=== PATIENT | female | born 1990 | race Caucasian/White ===

== ENCOUNTER → 2020-09-11 12:43 | Outpatient (CLI) | payer OTHER, SELFPAY ==
[2020-09-11 13:30] LABS: COVID19 -Nasal RAPID Negative (Negative)
== END ==
PROVIDERS: Visit Provider Student in an Organized Health Care Education/Training Program
DX: Z20.822 Contact with and (suspected) exposure to COVID-19 (principal)
CPT/HCPCS: 87635

== ENCOUNTER → 2020-10-16 08:13 | Outpatient (CLI) | payer OTHER, SELFPAY ==
[2020-10-16 09:19] LABS: Add Manual Diff / Slide Review NO; Basophils Absolute Auto 0 /uL (0-100); Basophils Percent Auto 0.7 % (0-2); Eosinophils Absolute Auto 200 /uL (0-450); Eosinophils Percent Auto 3.6 % (2-4); Hematocrit 40.3 % (36-46); Hemoglobin 13.7 g/dL (12.0-16.0); Lymphocytes Absolute Auto 1600 /uL (1100-4500); Lymphocytes Percent Auto 33.4 % (25-40); Mean Corpuscular Hemoglobin 31.3 PG (26-34); Mean Corpuscular Volume 91.9 fL (80-100); Monocytes Absolute Auto 400 /uL (0-900); Monocytes Percent Auto 7.5 % (3-14); Neutrophils Absolute Auto 2600 /uL (1500-7000); Neutrophils Percent Auto 54.8 % (50-75); Platelet Count 192 X10^3/uL (150-400); Red Blood Cell Count 4.39 X10^6/uL (4.0-5.2); Red Cell Distribution Width 12.1 % (11.6-14.8); White Blood Cell Count 4.8 X10^3/uL (4.5-11.0)
[2020-10-16 09:55] LABS: Alanine Aminotransferase 17 IU/L (<35); Albumin 4.2 g/dL (3.5-5.0); Albumin Globulin Ratio 1.5 (1.0-2.8); Alkaline Phosphatase 34 U/L (38-126); Aspartate Aminotransferase 22 IU/L (14-36); BUN Creatinine Ratio 18.8 (6-22); Bilirubin Total 0.6 mg/dL (0.2-1.3); Blood Urea Nitrogen 12 mg/dL (7-17); Calcium 9.5 mg/dL (8.4-10.2); Carbon Dioxide 23 mmol/L (22-32); Chloride 105 mmol/L (98-107); Cholesterol 118 mg/dL (140-199); Estimated Glomerular Filt Rate > 60.0 mL/min (>60); Globulin 2.8 g/dL (1.7-4.1); Glucose 94 mg/dL (70-100); HDL Cholesterol 58 mg/dL (40-60); HEMOLYSIS < 15 (0-50); LDL Cholesterol Calculated 50 mg/dL (<100); Potassium 4.2 mmol/L (3.4-5.1); Sodium 137 mmol/L (137-145); Triglycerides 49 mg/dL (35-150)
== END ==
PROVIDERS: PCP Registered Nurse; Referring Provider Registered Nurse; Visit Provider Registered Nurse
DX: J45.909 Unspecified asthma, uncomplicated (principal); Z00.00 Encounter for general adult medical examination without abnormal findings; Z82.49 Family history of ischemic heart disease and other diseases of the circulatory system
CPT/HCPCS: 36415; 80053; 80061; 85025

== ENCOUNTER → 2020-11-26 14:35 | Outpatient (CLI) | payer OTHER, SELFPAY ==
[2020-11-26 15:24] LABS: Add Manual Diff / Slide Review NO; Basophils Absolute Auto 0 /uL (0-100); Basophils Percent Auto 0.3 % (0-2); Eosinophils Absolute Auto 100 /uL (0-450); Eosinophils Percent Auto 1.5 % (2-4); Hematocrit 38.2 % (36-46); Hemoglobin 13.3 g/dL (12.0-16.0); Lymphocytes Absolute Auto 1300 /uL (1100-4500); Lymphocytes Percent Auto 21.5 % (25-40); Mean Corpuscular HGB Conc 34.9 % (30-36); Mean Corpuscular Hemoglobin 31.7 PG (26-34); Monocytes Absolute Auto 400 /uL (0-900); Monocytes Percent Auto 5.9 % (3-14); Neutrophils Absolute Auto 4400 /uL (1500-7000); Neutrophils Percent Auto 70.8 % (50-75); Platelet Count 191 X10^3/uL (150-400); Red Blood Cell Count 4.19 X10^6/uL (4.0-5.2); Red Cell Distribution Width 12.1 % (11.6-14.8); White Blood Cell Count 6.2 X10^3/uL (4.5-11.0)
[2020-11-26 15:53] LABS: Appearance Urine UA CLEAR; Bilirubin Urine UA NEGATIVE (NEGATIVE); Color Urine UA YELLOW; Glucose Urine UA NEGATIVE (Negative); Ketones Urine UA NEGATIVE (NEGATIVE); Leukocyte Esterase Urine UA NEGATIVE (NEGATIVE); Nitrite Urine UA NEGATIVE (Negative); Occult Blood Urine UA NEGATIVE (Negative); Protein Urine UA NEGATIVE (Negative); Urobilinogen Urine UA 0.2 E.U./dL (0.2)
[2020-11-26 15:56] LABS: pH Urine UA 5.5 (4.5-8.0)
[2020-11-26 16:40] LABS: Hepatitis B Surface Antigen NEGATIVE s/c (NEGATIVE)
[2020-11-26 16:59] LABS: HIV 1 & 2 Ab/Ag 4th Gen Combo NEGATIVE (NEGATIVE); Hep C Virus Ab w/Reflex Quant NEGATIVE s/c (NEGATIVE)
[2020-11-27 05:37] LABS: RPR Screen Non Reactive (Non Reactive)
[2020-11-27 07:10] LABS: Varicella IgG Antibody 1871 index (Immune >165)
== END ==
PROVIDERS: PCP Registered Nurse; Referring Provider Obstetrics & Gynecology; Visit Provider Obstetrics & Gynecology
DX: Z34.01 Encounter for supervision of normal first pregnancy, first trimester (principal)
CPT/HCPCS: 36415; 80055; 81003; 86787; 86803; 86850; 86900; 86901; 87086; 87389

== ENCOUNTER → 2021-01-19 15:16 | Outpatient (CLI) | payer OTHER, SELFPAY ==
[2021-01-21 18:18] LABS: AFP Value 107.5 ng/mL (.); Gest Age on Col Date 18.3 weeks (.); Insulin Dep Diabetes No (.); OSBR Risk 1IN 676 (.); Results Report (.); Test Results *Screen Negative* (.)
== END ==
PROVIDERS: PCP Registered Nurse; Referring Provider Obstetrics & Gynecology; Visit Provider Obstetrics & Gynecology
DX: Z34.02 Encounter for supervision of normal first pregnancy, second trimester (principal); Z3A.18 18 weeks gestation of pregnancy
CPT/HCPCS: 36415; 82105

== ENCOUNTER → 2021-02-01 15:37 | Outpatient (CLI) | payer OTHER, SELFPAY ==
--- NOTE | 2021-02-01 15:38 | DI.US.S_ITS ---
PROCEDURE: US OB >= 14 WEEKS FETUS INDICATIONS: ANATOMY SCAN OUTSIDE/PRIOR DATING DATA: Last menstrual period (LMP): 09/13/2020. LMP-based estimated date of delivery (DA): 06/20/2021 . First dating scan (date and location): 11/10/2020 . Estimated date of delivery (DA) from first dating scan: 06/17/2021 . TECHNIQUE: Real-time scanning was performed of the fetus, with image documentation and biometric measurements. Endovaginal scanning: No COMPARISON: [facility], , US OB <= 14 WEEKS FETUS, 12/14/2020, 15:15. FINDINGS: General: A single living intrauterine gestation is present. Presentation: Vertex. Placenta: Placental position is anterior , without previa. Amniotic fluid index: 12.6 cm, normal range is 5-24 cm. heart rate: 141 beats per minute. Maternal cervical canal: 5.0 cm long. Normal lower limit is 2.5 cm. biometrics: Biparietal diameter: 20 weeks 6 days Head circumference: 20 weeks 6 days Abdominal circumference: 20 weeks 1 day Femur length: 20 weeks 6 days Estimated gestational age from initial scan: 20 weeks 4 days Composite gestational age from present scan: 20 weeks 5 days Estimated weight and percentile: 350 g; 41st percentile Measurement variability for biometric dating: +/- 7 days from 14 weeks to 15 weeks 6 days gestation, +/- 10 days from 16 weeks to 21 weeks 6 days gestation, +/- 2 weeks from 22 weeks to 27 weeks 6 days gestation, +/- 3 weeks for 28 weeks gestation or later. weight reference: 4500 g or EFW >90/95% is considered macrosomia or large for gestational age. EFW <10% is small for gestational age. EFW 5% or less is considered intra-uterine growth restriction. Anatomic survey: Neuro: Ventricles are non-dilated at less than 10 mm. Cisterna magna is normal at 3-11 mm. Cerebellum is normal in size and morphology. Nuchal skin fold: Normal at less than 6 mm between 14-21 weeks gestational age. Face: Nose and lips, facial profile are normal. Spine: No evidence for spina bifida. Heart: 4-chambered heart is present, with normal ventricular outflow tracts. Diaphragm: Diaphragm is intact. Stomach: Left-sided stomach is present. Kidneys: No hydronephrosis. Normal is less than 5 mm in 2nd trimester, less than 7 mm in 3rd trimester. Cord: 3-vessel cord has orthotopic insertion. Bladder: Normal in size. Extremities: All 4 extremities identified. IMPRESSION: 1. Single living IUP redemonstrated and interval growth is normal. 2. Normal anatomic survey. Dictated by: Nelson Sauceda [facility] Interpreted: Wilver Zepeda MD on 02/01/2021 at 16:49 Transcribed by: BRETT on 02/01/2021 at 16:50 Approved by: Wilver Zepeda M.D. on 02/01/2021 at 17:14
== END ==
PROVIDERS: PCP Registered Nurse; Referring Provider Obstetrics & Gynecology; Visit Provider Obstetrics & Gynecology
DX: Z34.02 Encounter for supervision of normal first pregnancy, second trimester (principal); Z3A.20 20 weeks gestation of pregnancy
CPT/HCPCS: 76811

== ENCOUNTER → 2021-03-06 08:35 | Outpatient (CLI) | payer OTHER, SELFPAY ==
[2021-03-06 09:55] LABS: Hematocrit 33.2 % (36-46); Hemoglobin 11.6 g/dL (12.0-16.0)
[2021-03-06 10:09] LABS: GTT (PREG) 1 Hour PP 50gm Dose 113 mg/dL (76-139)
== END ==
PROVIDERS: PCP Registered Nurse; Referring Provider Obstetrics & Gynecology; Visit Provider Obstetrics & Gynecology
DX: Z34.02 Encounter for supervision of normal first pregnancy, second trimester (principal); Z3A.26 26 weeks gestation of pregnancy
CPT/HCPCS: 36415; 82950; 85014; 85018

== ENCOUNTER → 2021-06-04 13:06 | Outpatient (CLI) | payer OTHER, SELFPAY ==
[2021-06-05 14:51] LABS: Strep Grp B PCR NEG for Grp B Strep
== END ==
PROVIDERS: PCP Registered Nurse; Visit Provider Obstetrics & Gynecology
DX: Z34.03 Encounter for supervision of normal first pregnancy, third trimester (principal); Z3A.37 37 weeks gestation of pregnancy
CPT/HCPCS: 87653

== ENCOUNTER 2021-06-17 23:18 | Outpatient (CLI) | payer OTHER, SELFPAY ==
[2021-06-18] MEDS: hydrOXYzine 50 MG/ML INJ IM (01:51)
[2021-06-18] MEDS: MORPHINE 10 MG/ML INJ IM (01:57)
== END 2021-06-18 02:00 | disposition home or self-care (01) ==
LOC: LABOR 23:23 → OB 06-18 09:36
PROVIDERS: PCP Registered Nurse; Referring Provider Obstetrics & Gynecology; Visit Provider Obstetrics & Gynecology
DX: O47.1 False labor at or after 37 completed weeks of gestation (principal); Z3A.39 39 weeks gestation of pregnancy
CPT/HCPCS: 59025; 96372; G0378; G0379; J2270; J3410

== ENCOUNTER 2021-06-19 05:28 | Inpatient (IN) | payer OTHER, SELFPAY ==
[2021-06-19 06:11] LABS: COVID19 -Nasal RAPID Negative (Negative)
[2021-06-19 06:28] VITALS: BP 114/58
[2021-06-19 06:41] LABS: Add Manual Diff / Slide Review NO; Basophils Absolute Auto 0 /uL (0-100); Basophils Percent Auto 0.4 % (0-2); Eosinophils Absolute Auto 100 /uL (0-450); Eosinophils Percent Auto 0.5 % (2-4); Hematocrit 38.6 % (36-46); Hemoglobin 13.4 g/dL (12.0-16.0); Lymphocytes Absolute Auto 1500 /uL (1100-4500); Mean Corpuscular HGB Conc 34.8 % (30-36); Mean Corpuscular Hemoglobin 32.1 PG (26-34); Mean Corpuscular Volume 92.3 fL (80-100); Monocytes Absolute Auto 700 /uL (0-900); Monocytes Percent Auto 6.2 % (3-14); Neutrophils Absolute Auto 9100 /uL (1500-7000); Neutrophils Percent Auto 79.9 % (50-75); Platelet Count 199 X10^3/uL (150-400); Red Blood Cell Count 4.18 X10^6/uL (4.0-5.2); Red Cell Distribution Width 12.4 % (11.6-14.8); White Blood Cell Count 11.3 X10^3/uL (4.5-11.0)
--- NOTE | 2021-06-19 10:38 | P.HPOB_ITS ---
OB HPI Date/Time Date of admission: 06/19/21 Date Patient Seen: 06/19/21 Time Patient Seen: 10:46 History of Present Condition Chief complaint: contractions : 1 Para: 0 Estimated Date of Delivery: 06/20/21 Estimated Gestational Age (weeks): 39+6 Narrative: Paris Lopez is a 30 year old admitted with q 2 minute contractions in early labor at 39+6 weeks EGA. GBS negative. PNC uncomplicated. Patient's h usband is symptomatic with positive COVID 3 days ago and therefore will not be attending delivery. Her mother is coming to be present for the delivery and should be arriving in [place] by early afternoon. History of Present care: good care Dating criteria: LMP confirmed by 1st trimester US Ultrasounds: normal 1st trimester US and normal mid trimester US Obstetrical complications: none Medical complications: none Preadmission Labs Blood type: O (+) positive -: Antibody screen: negative, Cystic fibrosis screen: positive (FOB CF screen negative), GBS status: negative, HBsAG: negative, HIV: negative and RPR/VDLR: negative -: Chlamydia screen: not detected and Gonorrhea screen: not detected -: Rubella: immune and Varicella: immune HCT: 38.6 HCAB: negative PAP: Normal Quad screen: Normal Cell-free DNA: Low risk, male CF screen +, FOB negative Urine: Negative 1 hr GTT: 113 Prior (ies) History: N/A Evaluation Evaluation Baseline heart rate: 145 Variability: Moderate (11-25) monitor accelerations: Present Monitor Decelerations: Absent Contraction Frequency (minutes): 4 Uterine Contraction Intensity: Moderate Category of Tracing: Reactive Status: Category l Dilation (cm): 4 Effacement (%): 80 Dilation: 3-4 cm Effacement: >/=80% station: -2 Position of cervix: mid Consistency: soft Mehta score: 9 PFSH Medical History Amenorrhea Asthma (~1992) Chicken pox (~1992) History of being hospitalized Pneumonia Raynauds phenomenon Twin , mate liveborn Surgical History [place] teeth removed (~06/2016) Family History Father Hypertension Mother GERD (gastroesophageal reflux disease) Redundant colon Colon polyps Brother Hypertension One of twins Grandfather Cancer Colon cancer Grandmother Dementia Hypothyroidism Depression Grandfather Hypertension Arthritis Grandmother Cancer Breast cancer Family/Other Diabetes mellitus CAD (coronary artery disease) Family/Other COVID-19 Family/Other Alcohol addiction Social History marital status: household members: spouse lives independently: Yes pets and animals: No education level: master's degree ([place] ) occupational status: employed current occupational exposures/hazards: Yes opal/mormonism: [employer] special opal needs: No Smoking Status: Never smoker second hand exposure: No alcohol intake: former (pre- : weekly) substance use type: does not use Meds Home Medications and Allergies Home Medications Medication Instructions Recorded Confirmed Type multivitamin (Daily Multi-Vitamin) 1 tab PO DAILY 11/04/20 06/16/21 History prenat.vits,kandy,erl-jcyy-wckam 1 tab PO DAILY 11/04/20 06/16/21 History citalopram 10 mg tablet (Celexa) 10 mg PO DAILY #30 tab 01/19/21 06/16/21 Rx hydroxyzine HCl 25 mg tablet 25 mg PO BID PRN #20 tab 01/19/21 06/16/21 Rx Allergies Allergy/AdvReac Type Severity Reaction Status Date / Time chlorhexidine Allergy Intermediate Rash Verified 06/10/21 16:53 Review of Systems Review of Systems Narrative: Problem-specific ROS positives included in HPI OB Exam [facility] Head: normal to inspection, normocephalic and atraumatic Mouth: oral mucosae normal Eyes General: appearance normal, both eyes and all related structures Resp Effort & Inspection: normal respiratory effort and able to speak in complete sentences Auscultation: clear to auscultation bilaterally Cardio Rate: regular rate Rhythm: regular rhythm Heart Sounds: S1 normal, S2 normal and no murmurs Uterus Location (Fundal Height): 36 Presentation: vertex Estimated Weight (lbs): 8 Objective Labs Result Diagrams: 06/19/21 06:15 Labs: Laboratory Results - last 24 hr 06/19/21 06/19/21 06/19/21 05:40 06:15 06:15 WBC 11.3 H RBC 4.18 Hgb 13.4 Hct 38.6 MCV 92.3 MCH 32.1 MCHC 34.8 RDW 12.4 Plt Count 199 Neut % (Auto) 79.9 H Lymph % (Auto) 13.0 L [place] % (Auto) 6.2 Eos % (Auto) 0.5 L Baso % (Auto) 0.4 Neut # (Auto) 9100 H Lymph # (Auto) 1500 [place] # (Auto) 700 Eos # (Auto) 100 Baso # (Auto) 0 SARS-CoV-2 (PCR) Negative Blood Type O Positive Antibody Screen Negative Assessment and Plan Assessment and Plan Assessment and Plan narrative: ASSESSMENT 1. Intrauterine gestation, [place], 39+ 6 weeks gestational age, vertex 2. GBS negative 3. CF carrier (FOB negative) PLAN 1. Admit; see orders 2. SOTO as desired 3. Anticipate 4. Dr. Green will be delivering infant Time Spent with Patient Total time spent with greater than 50% in coordination of care (as documented) at patient's floor/unit and/or counseling patient:: 15-24 minutes
--- NOTE | 2021-06-19 13:14 | PM.AN.REGBLK ---
Regional Block Pre-procedure Procedure: Continuous Lumbar Epidural for L&D Attending OB provider: Robert Antunez PM/JUAN narrative: term labor, no complications ASA Class: II Labs: Hct 38.6 % (36-46) 06/19/21 06:15 Plt Count 199 X10^3/uL (150-400) 06/19/21 06:15 Medications: Current Medications Generic Name Dose Route Start Last Admin Trade Name Freq PRN Reason Stop Dose Admin Acetaminophen 650 mg 06/19/21 05:46 Acetaminophen 325 Mg Tablet PO Q4HR PRN Fever/Mild Pain (1-3) Calcium Carbonate 1,000 mg 06/19/21 05:46 Calcium Carbonate 500 Mg Tab PO Q2H PRN Dyspepsia Carboprost Tromethamine 250 mcg 06/19/21 06:19 Carboprost 250 Mcg/Ml Ampul IM Q90M PRN Bleeding Diphenhydramine HCl 25 mg 06/19/21 06:28 Diphenhydramine 50 Mg/Ml Vial IV Q10M PRN Pruritis Fentanyl 50 mcg 06/19/21 06:19 Fentanyl 100 Mcg/2 Ml Inj IV Q1H PRN Pain, Moderate (4-6) Lactated Ringer's 1,000 mls @ 100 mls/hr 06/19/21 06:00 Lactated Ringers IV CONT EMMA FENT 2MCG/ML BUPIV 0.125% EPI 200 mcg in 100 mls @ 6 mls/hr 06/19/21 06:30 Fentanyl/Bupiv/Ns 2mcg/Ml - 0.125% EPIDURAL CONT EMMA Lactated Ringer's 1,000 mls @ 100 mls/hr 06/19/21 06:30 Lactated Ringers IV CONT EMMA Oxytocin/Lactated Ringer's 30 unit in 500 mls @ 200 mls/hr 06/19/21 06:19 Oxytocin Premix IV CONT PRN Bleeding Protocol Tranexamic Acid 1,000 mg/ 100 mls @ 200 mls/hr 06/19/21 06:19 Sodium Chloride IV NOW PRN Bleeding Methylergonovine Maleate 0.2 mg 06/19/21 06:19 Methylergonovine 0.2 Mg Tablet PO Q6HR PRN Heavy Bleeding Methylergonovine Maleate 0.2 mg 06/19/21 06:19 Methylergonovine 0.2 Mg/Ml Vial IM NOW PRN Bleeding Misoprostol 800 mcg 06/19/21 06:19 Misoprostol 200 Mcg Tablet AL NOW PRN Bleeding Misoprostol 1,000 mcg 06/19/21 06:19 Misoprostol 200 Mcg Tablet AL NOW PRN Bleeding Misoprostol 400 mcg 06/19/21 06:19 Misoprostol 200 Mcg Tablet SL NOW PRN Bleeding Nalbuphine HCl 2.5 mg 06/19/21 06:28 Nalbuphine 20 Mg/Ml Ampul IV Q10M PRN Pruritis Naloxone HCl 0.2 mg 06/19/21 06:19 Naloxone 0.4 Mg/Ml Vial IV Q2MIN PRN Opiate Reversal Oxytocin 10 unit 06/19/21 06:19 Oxytocin 10 Unit/Ml Vial IM NOW PRN Bleeding Zolpidem Tartrate 5 mg 06/19/21 05:46 Zolpidem 5 Mg Tablet PO BEDTIME PRN Sleep Allergies: Allergies Allergy/AdvReac Type Severity Reaction Status Date / Time chlorhexidine Allergy Intermediate Rash Verified 06/10/21 16:53 Procedure Insertion date: 06/19/21 Insertion time: 06:40 Prep/Local: betadine x3 and 1% lidocaine Interspace: L3-4 Patient position: sitting Needle: 18 gauge Hustead (CSE: 27g Pencan through Hustead, clear CSF, 1mL 0.25% MPF bupiv) Loss of resistance with: saline GHADA at (cm): 4 Catheter placed at SKIN (cm): 9 Catheter in SPACE (cm): 5 Insertion: No CSF, No Blood, No Paresthesia with insertion, No Paresthesia with injection and No Test dose reaction Initial Medications TEST DOSE time: 06:51 TEST DOSE: 1.5% lidocaine with epinephrine 1:200k (mL): 3 BOLUS DOSE time: 07:01 BOLUS DOSE (mL): 3 BOLUS DOSE med: other (infusate) Infusion INFUSION: 0.125% bupivacaine and with fentanyl 2 mcg/mL Initial rate (mL/hr): 6 Subsequent interventions: 23:00 5mL clinician bolus, rate to 10 02:15 5mL clinician bolus, SROM 03:15 6mL 2% chloroprocaine, rectal pressure 04:20 5mL 0.25% bupiv with 50mcg fentanyl, rectal pressure 06:10 5mL 2% chloroprocaine with 50 mcg fentanyl, rectal pressure. No pain/discomfort with exam, no abdominal or back pain with contraction, only rectal pressure, -2 station per RN, 9cm. 07:30 No relief with bolus, contractions now felt all over. Replaced epidural: seated, betadine/lidocaine L4-5. CSE: 18g Hustead, GHADA saline at 4cm, 27g Pencan through Hustead, clear CSF, 0.5mL 0.25% bupiv, catheter to 9cm at skin, 5cm in space. No CSF, no blood, no paresthesia, negative test dose 3mL 1.5% lido with epi 1:200k. gtt started at 10mL/h 0.125% bupiv with fentanyl 2mcg/mL 08:40 pt sleeping comfortably 09:50 cold sensation reveals bilateral block approx T-7. Pt c/o RLQ window pain, R lower back pain, not resolved with PCEA bolus. 6mL 2-chloroprocaine given. To OR 12:54 Post-procedure Anesthesia time START: 06:32 Anesthesia time END: 12:54 Post-procedure Anesthesia Assessment: Yes CV function: HR/BP stable, Yes Resp function: RR/sat/airway adequate and Yes Mental status appropriate
--- NOTE | 2021-06-19 13:19 | PM.OBPNLAB ---
Date/Time Date Patient Seen: 06/19/21 Time Patient Seen: 13:00 Pain Control Pain control: tolerating well and epidural Pelvic Exam Dilation (cm): 4 Effacement (%): 95 station: -1 Amniotic membrane status: Intact Contractions Contractions on admission: regular Monitor mode: External Contraction frequency (min): 5 Contraction duration (min): 1 Contraction pattern: Regular Contraction phase: Resting Contraction intensity: Moderate Status status: Category l Heart Rate Baseline: 145 Monitor Accelerations: Present Monitor Decelerations: Absent Monitor Variability: Moderate Assessment and Plan Assessment: other (Latent phase labor) Comments: AROM offered but patient does not want to expedite labor at this point given that her due to COVID quarantine cannot be with her until midnight tonight. She will however think about it and decide how she wishes to proceed but at this point delay in delivery until her can be present is her preference which is completely reasonable and understandable. Dr. Green notified.
[2021-06-19] MEDS: FENT 2MCG/ML BUPIV 0.125% EPI 200 MCG/100 ML PLAST..BAG 3 MCG EPIDURAL (15:29)
[2021-06-19] MEDS: FENT 2MCG/ML BUPIV 0.125% EPI 200 MCG/100 ML PLAST..BAG 6 MCG EPIDURAL (23:21)
[2021-06-19] MEDS: LACTATED RINGERS 1,000 ML 100 ML IV (23:32)
[2021-06-20] VITALS (7 sets, daily range): BP systolic 118–135; BP diastolic 71–84; PULSE 77–89; RESP 13–18; TEMP 37.7–37.8; O2SAT 100
[2021-06-20] MEDS: ONDANSETRON 4 MG/2 ML INJ (04:28)
[2021-06-20] MEDS: FENT 2MCG/ML BUPIV 0.125% EPI 200 MCG/100 ML PLAST..BAG 10 MCG EPIDURAL ×2 (05:23→10:29)
[2021-06-20] MEDS: OXYTOCIN PREMIX 30 UNIT/500 ML PLAST..BAG IV (08:51)
--- NOTE | 2021-06-20 12:20 | PM.OBPNLAB ---
Date/Time Date Patient Seen: 06/20/21 Time Patient Seen: 09:25 Pain Control Pain control: epidural (One-sided) Pelvic Exam Dilation (cm): 6 Effacement (%): 95 station: -1 Amniotic membrane status: Ruptured Comments: Spontaneous rupture of membranes at 1:30 a.m. with clear amniotic fluid Contractions Contractions on admission: regular Monitor mode: External Pitocin rate (mU/min): 1 Contraction frequency (min): 3 Contraction duration (min): 1 Contraction pattern: Regular Contraction phase: Resting Contraction intensity: Strong/Firm Status status: Category l Heart Rate Baseline: 130 Monitor Accelerations: Present Monitor Decelerations: Absent Monitor Variability: Moderate Assessment and Plan Assessment: active labor Plan: continuous present management Comments: Anesthesia to re-evaluate pain control Once patient is comfortable well do side to side to try to resolve the asynclitic head
--- NOTE | 2021-06-20 12:22 | PM.OBPNLAB ---
Date/Time Date Patient Seen: 06/20/21 Time Patient Seen: 12:10 Pain Control Pain control: epidural (Breakthrough pain) Pelvic Exam Dilation (cm): 6 Effacement (%): 95 station: -1 Amniotic membrane status: Ruptured Comments: Swollen cervix Contractions Contractions on admission: regular Monitor mode: External Pitocin rate (mU/min): 0 Contraction frequency (min): 3 Contraction duration (min): 1 Contraction pattern: Regular Contraction phase: Resting Contraction intensity: Strong/Firm Status status: Category l Heart Rate Baseline: 130 Monitor Accelerations: Present Monitor Decelerations: Prolonged (Down to 90's, resolved after O2 placed, position change and IV fluid bolus) Monitor Variability: Moderate Assessment and Plan Assessment: active labor Plan: Comments: The decision was made due to stage I arrest of labor and intolerance of labor to proceed to a primary section. The risks, benefits, and alternatives to the procedure were explained to the patient. The risks including bleeding, infection, injury to the bowel, bladder, or ureters. She understands these risks and agrees to proceed. A full par Q was held and consent form was signed. OR team notified
[2021-06-20] MEDS: CEFAZOLIN 2 GM/20 ML SYRINGE IV (13:06)
--- NOTE | 2021-06-20 13:23 | SUR.OPER ---
Supine on Padded OR bed, head on pillow, safety belt at thigh, arms secured on padded arm boards at <90 degrees abduction. Bump under right buttock. Legs uncrossed with pillow under knees, gel pad to heels, tape over blanket to lower legs. Gel pad placed between patients posterior thigh and catheter tubing.
--- NOTE | 2021-06-20 13:39 | SUR.OPER ---
Addendum entered by Tierra Agudelo R.N. 06/20/21 14:28: Gauze from Vaginal swab by Dr. mccoy placed in bio hazard bag with patient label and given to Darcy Jaime&Teena SALAS. Original Note: Viable baby boy delivered at 1328. Placenta delivered. Placenta and cord blood tubes X2 given to Carly rn.
[2021-06-20] MEDS: ACETAMINOPHEN IV 1,000 MG/100 ML VIAL 400 MG IV (14:01)
--- NOTE | 2021-06-20 14:15 | PM.PREOP ---
Pre-operative Note COVID-19 COVID-19 status: Negative Result date/Date tested (Pos, Neg/Pending): 06/19/21 Criteria for continued procedure: Non-surgical alternatives not available or appropriate per current SOC Interval Note History & Physical reviewed/Exam performed by Physician: Yes Changes to H&P: No H&P completed within 30 days and has changed as indicated here:: 06/19/21
--- NOTE | 2021-06-20 14:16 | P.OP_ITS ---
Operative Date/Time/Diagnoses Date of procedure: 06/20/21 Time of procedure: 14:16 Pre-op diagnosis: 40 weeks gestation Stage 1 arrest of labor Malpresentation intolerance of labor Post-op diagnosis: same Procedure & Clinicians Procedure: Primary Low Transverse C sectin Same procedure as scheduled: Yes Indications: 40 weeks gestatin Malpresentation Stage 1 arrest of labor intolerance of labor Surgeon: Eleanor Green Senior Administrative Assistant: Robert Antunez Reason for Senior Administrative Assistant: Senior Administrative Assistant necessary for retraction and clipping of suture upon entering the abdomen. Senior Administrative Assistant necessary to assist with delivery of the baby by providing fundal pressure. Senior Administrative Assistant necessary in closure with retraction and cutting of suture as well as closing the contralateral fascia. Anesthesia Type: Epidural (with Duramorph) Operative Notes Findings: Live male infant in the direct occiput posterior presentation Cord low in the pelvis Normal uterus, tubes, and ovaries Closure Type: primary Specimen(s): cord blood and placenta Intraoperative meds administered: Acetaminophen, Duramorph, Ketorolac and Pitocin Applied: Catheter (To continuous drainage) Estimated Blood Loss (mL): 300 Blood products transfused: none Procedure in detail: The patient was taken to the operating room where she was placed in the dorsal supine position with a leftward tilt and prepped and draped in the usual sterile fashion. Once epidural analgesia was found to be adequate, a Pfannenstiel skin incision was made 2 fingerbreadths above the pubic symphysis and carried through to the underlying layer fascia. The fascia was nicked in the midline, and the incision extended bilaterally with the Koch scissors. The superior aspect of the fascial incision was grasped with a [place] clamps, elevated, and the underlying rectus muscles dissected off sharply and bluntly. Attention was then turned to the inferior aspect of this incision which in a similar fashion was grasped with a [place] clamps, elevated, and the underlying rectus muscles dissected off sharply and bluntly. The rectus muscles were in the midline. The peritoneum was identified, grasped between 2 hemostats, and entered sharply with the Metzenbaum scissors. This incision was extended superiorly and inferiorly with good visualization of the bladder. The bladder blade was inserted. The vesicouterine peritoneum was identified, grasped with the pickup, and entered sharply with the Metzenbaum scissors. This incision was extended bilaterally, and the bladder flap was created digitally. The bladder b lade was reinserted. The lower uterine segment was incised in a transverse fashion with the scalpel. Upon entering the amniotic sac there was a small amount of clear amniotic fluid. The 's head was delivered without difficulty. The nose and mouth were suctioned with bulb suction. The remainder of the body delivered without difficulty. The cord was double clamped and cut after 1 minute. The was handed off to waiting RN and RT. The placenta was delivered by expression. The uterus was cleared of all clots and debris. The uterine incision was repaired with #1 chromic in a running interlocking fashion, and a second layer the same suture was used for an imbricating layer. Hemostasis was achieved. The tubes and ovaries were examined and were found to be normal. The gutters were cleared of all clots and debris. The bladder flap was reapproximated using 2-0 Vicryl in a running fashion. The parietal peritoneum was closed using 2-0 Vicryl in a running fashion. The fascia was reapproximated using 0 Vicryl in a running fashion. Subcutaneous layer was copiously irrigated with warm normal saline. 6 simple interrupted sutures of 3- 0 Vicryl were placed to reapproximate the subcutaneous layer. The skin was closed with 4-0 Monocrylin a subcuticular fashion. Steri-Strips were placed. An Aquacel dressing was placed. Vaginal swabs with 4x4's were obtained. The red cliff sejal was expressed of a small amount of old blood. Sponge, lap, and instrument counts were correct x-2. The patient tolerated the procedure well, and was taken to PACU in stable condition. Complications: none Baby 1: Gender: Male Presentation: vertex Position: Occiput Posterior Placental Delivery Description: Expressed Cord Vessel Description: 3 Vessels, Clamped/Cut and Other (Piece of cord low in the pelvis) score (1 min): 8 score (5 min): 9 Post-operative Condition: stable Disposition: PACU Aftercare: routine postop
--- NOTE | 2021-06-20 14:58 | SUR.PHASEI ---
Stable PACU stay, no nausea no pain, taking ice chips well, Dr Green to bedside, marked fundus location. To after report called to JOSUE Jaime. Pt then transported to room 2 in stable condition.
[2021-06-20] MEDS: OXYTOCIN PREMIX 30 UNIT/500 ML PLAST..BAG 200 UNIT IV (15:15)
[2021-06-20] MEDS: ACETAMINOPHEN 325 MG TABLET 650 MG PO (22:30)
[2021-06-20] MEDS: KETOROLAC 30 MG/ML VIAL IV (22:30)
[2021-06-21] MEDS: ACETAMINOPHEN 325 MG TABLET 650 MG PO ×4 (04:30→22:24)
[2021-06-21] MEDS: OXYCODONE IR 5 MG TABLET PO (04:32)
[2021-06-21] MEDS: KETOROLAC 30 MG/ML VIAL IV ×2 (04:33→10:52)
[2021-06-21 06:59] LABS: Hematocrit 34.3 % (36-46); Hemoglobin 11.8 g/dL (12.0-16.0)
[2021-06-21] MEDS: DOCUSATE 100 MG CAPSULE 200 MG PO (08:42)
[2021-06-21] MEDS: PRENATAL VIT,CALC/IRON/FOLIC 1 TABLET 1 TAB PO (08:43)
[2021-06-21] MEDS: IBUPROFEN 600 MG TABLET PO ×2 (16:31→22:24)
--- NOTE | 2021-06-21 16:40 | PM.OBPN.1 ---
Subjective - OB Subjective Patient comments: no complaints, pain well controlled, tolerating diet, flatus present and other (voided without the catheter) [place] baby status: doing well and nursing well ( consult pending) feeding status: exclusively breast feeding Date Patient Seen: 06/21/21 Time Patient Seen: 10:15 Exam Vital Signs (past 8 hours): Oxygen Delivery Method Room Air Narrative Exam Narrative: Generally: Patient is sitting up in bed, no acute distress Fundus: Firm at U -1 Incision: Clean dry and intact with Aquacel dressing Extremities: Trace edema, negative Homans Objective Labs Result Diagrams: 06/21/21 06:42 Labs: Laboratory Results - last 24 hr 06/21/21 06:42 Hgb 11.8 L Hct 34.3 L Assessment & Plan Plan day: 1 plan OB: routine postop care Comments: consultation Anticipate discharge June 22, 2021 Time Spent With Patient Time: Total time spent is greater than 50% in coordination of care (as documented) at patient's floor/unit and/or counseling patient: Time with patient: 15-24 minutes
[2021-06-21] MEDS: OXYCODONE IR 10 MG TABLET PO (18:42)
[2021-06-22] MEDS: OXYCODONE IR 10 MG TABLET PO ×3 (01:53→11:04)
[2021-06-22] MEDS: IBUPROFEN 600 MG TABLET PO ×2 (04:08→11:07)
[2021-06-22] MEDS: ACETAMINOPHEN 325 MG TABLET 650 MG PO ×2 (04:08→11:06)
[2021-06-22] MEDS: DOCUSATE 100 MG CAPSULE 200 MG PO (11:01)
[2021-06-22] MEDS: PRENATAL VIT,CALC/IRON/FOLIC 1 TABLET 1 TAB PO (11:02)
--- NOTE | 2021-06-22 11:26 | P.DS_ITS ---
Discharge Providers Provider Date of admission: 06/19/21 05:28 Discharge Date: 06/22/21 Primary care physician: PRITI Lo Consults: 06/19/21 06:24 Consult to Anesthesiology Urgent Comment: Consulting Provider: Robert Antunez Reason for consultation: SOTO placement in labor Has provider been notified: No 06/20/21 15:03 Consult to Wool Buyer Routine Comment: Discharge provider: Eleanor Green MD Summary Hospital Course Date Patient Seen: 06/22/21 Time Patient Seen: 11:26 Diagnoses: Intrauterine of 40 weeks gestation Spontaneous rupture of membranes Prolonged labor Occiput posterior presentation intolerance of labor Primary low-transverse section Hospital Course: Patient is a 30-year-old 1 para 1 who presented on June 19, 2021 in early labor. She was found to be 4 cm dilated. She received an epidural for pain management. She did not wish to have any augmentation of labor until her was able to come to the center. He initially was not able to come due to a positive COVID test earlier in the week. She had a spontaneous rupture of membranes on June 20, 2021. The epidural was replaced due to in adequate pain management. She received Pitocin augmentation to a max of 2 igor IU per minute. She progressed to 6-7 cm. There was male presentation with the baby in the occiput posterior presentation. With adequate contractions for 6 hours, there was no progression beyond 6-7 cm. The vertex was at -1 station. While in discussion regarding proceeding to section, the baby had a prolonged deceleration down to the 90s. She underwent an urgent primary section under epidural analgesia. There were no complications. Her postoperative course has been unremarkable. She received a consultation for . Her pain has been well controlled. She voided immediately after removal of the Ma catheter. She is passing flatus. She is ambulating without assistance. She is tolerating a diet. She is discharged home on postop day # 2. Peripartum Data Delivery Method: Section (Urgent) Laceration Description: None Episiotomy description: None Procedures: Epidural analgesia Pitocin augmentation of labor Primary low transverse C section complications: none [place] 1: Gender: Male Disposition of : home Status at Discharge Cognitive/behavioral status at discharge: oriented Functional status at discharge: independent ambulation Overall status at discharge: patient is progressing back to baseline Time Spent with Patient Time attestation: Total time spent providing and/or coordinating discharge services: Time spent: Less than 30 minutes Time spent discussing smoking cessation with patient: 3 to 10 minutes Objective Labs Result Diagrams: 06/21/21 06:42 Exam Vital Signs (past 8 hours): Oxygen Delivery Method Room Air Narrative Exam Narrative: Generally: Patient is sitting up in chair, nursing , no acute distress Lungs: Clear to auscultation bilaterally Cardiovascular: Regular rate and rhythm Fundus: Firm at U -1 Incision: Clean dry and intact with Aquacel dressing Extremities: Trace edema, negative Homans Discharge Plan Discharge Plan Patient Disposition: Home Provider Discharge Comment: Call with fever, chills, redness or drainage around the incision, or bleeding vaginally more than 1 pad an hour Ibuprofen 600 mg every 6 hours Tylenol 650 mg every 6 hours Oxycodone every 4 hours as needed Discharge orders & Medications Prescriptions: New oxycodone 5 mg tablet 5 mg PO Q4H PRN (Reason: pain) Qty: 30 0RF Rx Instructions: Take 1-2 tabs every 4 hours as needed for pain Continued prenat.vits,kandy,[id number] Tablet 1 tab PO DAILY 0RF multivitamin [Daily Multi-Vitamin] Tablet 1 tab PO DAILY 0RF Follow up/Referrals: Eleanor Green MD [Physician] - 2 Weeks Diet/Activity/Treatments Diet: Regular Activity: No heavy lifting Skin/Wound/Dressing Care Report to your healthcare provider any signs of infection, such as:: chills, fever, increased pain, unusual drainage and unusual redness Dressing: Remove Aquacel dressing on Monday. Leave steri strips in place Dry incision with a interior design program chair on a cool setting Visit Report/Discharge Packet Instructions: DI for , DI for Prescription Opioid Use Discharge Data Primary Care Provider: Hailey Monaco
== END 2021-06-22 12:10 | disposition home or self-care (01) | DRG 788 ==
PROVIDERS: Obstetrics & Gynecology; Specialist; Admitting Provider Obstetrics & Gynecology; PCP Registered Nurse; Referring Provider Obstetrics & Gynecology; Visit Provider Obstetrics & Gynecology
PROC: 10D00Z1 Extraction of Products of Conception, Low, Open Approach (ICD-10-PCS; CPT 59514; principal; 2021-06-20 12:45)
DX: O62.1 Secondary uterine inertia (principal); O76 Abnormality in fetal heart rate and rhythm complicating labor and delivery; O64.2XX0 Obstructed labor due to face presentation, not applicable or unspecified; Z37.0 Single live birth; Z3A.40 40 weeks gestation of pregnancy; O48.0 Post-term pregnancy; O28.5 Abnormal chromosomal and genetic finding on antenatal screening of mother; Z20.822 Contact with and (suspected) exposure to COVID-19
CPT/HCPCS: 01967; 01968; 36415; 59510; 59514; 85014; 85018; 85025; 86850; 86900; 86901; 87635; C9803; G0379; J0131; J0690; J1885; J2274; J2405; J2590; J3010

== ENCOUNTER → 2022-08-10 10:55 | Outpatient (CLI) | payer OTHER, SELFPAY ==
[2022-08-10 13:13] LABS: HCG Quantitative /Beta subunit 11.1 mIU/mL
== END ==
PROVIDERS: Referring Provider Obstetrics & Gynecology; Visit Provider Obstetrics & Gynecology
DX: O20.9 Hemorrhage in early pregnancy, unspecified (principal)
CPT/HCPCS: 36415; 84702

== ENCOUNTER → 2022-08-12 08:44 | Outpatient (CLI) | payer OTHER, SELFPAY ==
[2022-08-12 10:43] LABS: HCG Quantitative /Beta subunit 5.2 mIU/mL
== END ==
PROVIDERS: Referring Provider Obstetrics & Gynecology; Visit Provider Obstetrics & Gynecology
DX: O20.9 Hemorrhage in early pregnancy, unspecified (principal)
CPT/HCPCS: 36415; 84702

== ENCOUNTER → 2022-10-19 09:54 | Outpatient (CLI) | payer OTHER, SELFPAY ==
[2022-10-19 10:41] LABS: Miscellaneous to LabCorp NATERA KIT
[2022-10-19 11:11] LABS: Add Manual Diff / Slide Review NO; Basophils Absolute Auto 0 /uL (0-100); Basophils Percent Auto 0.3 % (0-2); Eosinophils Absolute Auto 100 /uL (0-450); Eosinophils Percent Auto 2.3 % (2-4); Hematocrit 38.3 % (36-46); Hemoglobin 13.6 g/dL (12.0-16.0); Lymphocytes Absolute Auto 1500 /uL (1100-4500); Lymphocytes Percent Auto 26.5 % (25-40); Mean Corpuscular HGB Conc 35.4 % (30-36); Mean Corpuscular Hemoglobin 31.6 PG (26-34); Mean Corpuscular Volume 89.3 fL (80-100); Monocytes Absolute Auto 300 /uL (0-900); Monocytes Percent Auto 5.8 % (3-14); Neutrophils Absolute Auto 3700 /uL (1500-7000); Neutrophils Percent Auto 65.1 % (50-75); Platelet Count 198 X10^3/uL (150-400); Red Blood Cell Count 4.29 X10^6/uL (4.0-5.2); Red Cell Distribution Width 12.5 % (11.6-14.8); White Blood Cell Count 5.7 X10^3/uL (4.5-11.0)
[2022-10-19 16:17] LABS: Hepatitis B Surface Antigen NEGATIVE s/c (NEGATIVE)
[2022-10-19 16:30] LABS: HIV 1 & 2 Ab/Ag 4th Gen Combo NEGATIVE (NEGATIVE); Hep C Virus Ab w/Reflex Quant NEGATIVE s/c (NEGATIVE)
[2022-10-20 07:32] LABS: RPR Screen Non Reactive (Non Reactive)
[2022-10-20 11:22] LABS: Varicella IgG Antibody 1641 index (Immune >165)
== END ==
PROVIDERS: Referring Provider Obstetrics & Gynecology; Visit Provider Obstetrics & Gynecology
DX: Z34.81 Encounter for supervision of other normal pregnancy, first trimester (principal)
CPT/HCPCS: 36415; 80055; 86787; 86803; 86850; 86900; 86901; 87086; 87389

== ENCOUNTER → 2022-11-03 13:47 | Outpatient (CLI) | payer OTHER, SELFPAY ==
[2022-11-03 21:07] LABS: Urine N gonorrhoeae NOT DETECTED
[2022-11-03 21:09] LABS: Urine Chlamydia NOT DETECTED
== END ==
PROVIDERS: Visit Provider Obstetrics & Gynecology
DX: Z34.81 Encounter for supervision of other normal pregnancy, first trimester (principal); Z3A.12 12 weeks gestation of pregnancy
CPT/HCPCS: 87491; 87591